=== PATIENT | female | born 1955 | race Caucasian/White ===

== ENCOUNTER → 2018-05-19 | Outpatient (CLI) | payer OTHER ==
[~2018-05-19] VITALS: Ht 163.8 cm; Wt 74.4 kg
[~2018-05-19] MED LIST: ASCORBIC ACID500 M3 PO; COLACE100 MG PO; FLEXERIL10 MG PO; HYDROCHLOROTH12.5 M3 PO; IRON325 M1 PO; LEVO-T100 MCG PO; LORTAB 5-325 M1 EACH PO; LUNESTA3 MG PO; PRENATAL TABLE1 EAC3 PO; PRINIVIL20 MG PO; ZOMIG5 MG PO
== END | disposition home or self-care (01) ==
LOC: AMB 09:33
PROC: 0DJD8ZZ Inspection of Lower Intestinal Tract, Via Natural or Artificial Opening Endoscopic (ICD-10-PCS; principal; 2018-05-19)
DX: D50.9 Iron deficiency anemia, unspecified (principal); R15.9 Full incontinence of feces; K64.8 Other hemorrhoids; Z90.49 Acquired absence of other specified parts of digestive tract; Z90.710 Acquired absence of both cervix and uterus; Z88.0 Allergy status to penicillin
CPT/HCPCS: 93005; J2250